=== PATIENT | male | born 1930 | race Caucasian/White ===

== ENCOUNTER 2016-10-07 16:55 | Inpatient (IN) | payer MEDICARE, OTHER ==
[~2016-10-07] VITALS: Ht 172.7 cm; Wt 58.2 kg
[2016-10-07 18:17] LABS: Basophils # (auto) 0 uL; Eosinophils # (auto) 0 uL; Eosinophils % (auto) 0.2 % (0.0-7.0); Hematocrit 32.4 % (41.0-53.0); Hemoglobin 10.5 g/dL (13.5-17.5); Lymphocytes # (auto) 0.9 uL; Lymphocytes % (auto) 6.8 % (10.0-50.0); Mean Corpuscular Hemoglobin 31.4 pg (28.0-32.0); Mean Corpuscular Hgb Conc. 32.5 g/dL (32.0-36.0); Mean Corpuscular Volume 96.5 fL (80.0-100.0); Mean Platelet Volume 7.5 fL (7.4-10.4); Monocytes # (auto) 0.7 uL; Monocytes % (auto) 5.3 % (0.0-12.0); Neutrophils % (auto) 87.7 % (37.0-80.0); Platelet Count (auto) 342 10^3/uL (140-450); Red Cell Distribution Width 14.4 % (11.6-16.0); White Blood Cell 13.7 10^3/uL (4.4-10.8)
[2016-10-07 18:39] LABS: BUN/Creatinine Ratio 23.1; Bilirubin, Total 0.6 mg/dL (0.2-1.0); Calcium 8.6 mg/dL (8.5-10.1); Potassium 3.8 mmol/L (3.5-5.1); Total Protein 7.3 g/dL (6.4-8.2)
[2016-10-07] MEDS ORDERED: ONDANSETRON HCL 4 MG/2 ML VIAL IV ONE (22:45)
[2016-10-07] MEDS ORDERED: MORPHINE SULF INJ 2 MG/ML SYRINGE 1ML IV ONE ×2 (22:45→23:45)
[2016-10-08 00:13] LABS: B-Type Natriuretic Peptide 237.32 pg/mL (0-100)
[2016-10-08 01:15] LABS: Urine RBC None Seen /hpf (0 - 3)
[2016-10-08 01:25] LABS: Urine Bilirubin Negative (Negative); Urine Blood Negative /uL (Negative); Urine Color Yellow (Yellow); Urine Glucose Normal (Normal); Urine Ketone Negative (Negative); Urine Nitrite Negative (Negative); Urine Urobilinogen Normal (Negative); Urine pH 5.5 (5.0-8.0)
[2016-10-08] MEDS ORDERED: VALS1TAB (03:41)
[2016-10-08] MEDS ORDERED: AMLO5TAB2 (03:41)
[2016-10-08] MEDS ORDERED: cefTRIAXone 1GM/50ML D5W 50 ML IV ONE (09:15)
[2016-10-08] MEDS ORDERED: DOCUSATE SOD 100 MG CAP PO PRN (09:30)
[2016-10-08] MEDS ORDERED: ONDANSETRON HCL 4 MG/2 ML VIAL IV PRN (09:30)
[2016-10-08] MEDS ORDERED: cloNIDine HCL 0.1 MG TAB PO PRN (09:30)
[2016-10-08] MEDS ORDERED: TEMAZEPAM 15 MG CAP PO PRN (09:30)
[2016-10-08] MEDS ORDERED: ACETAMINOPHEN 325 MG TAB PO PRN (09:30)
[2016-10-08] MEDS: AZITHROMYCIN 500MG/D5W 250ML 250 ML IV SCH (10:00)
[2016-10-08] MEDS: HCTZ 25 MG TAB PO SCH (10:00)
[2016-10-08] MEDS: MULTIPLE VITAMIN TAB PO SCH (11:13)
[2016-10-08] MEDS: POTASSIUM CHLORIDE 8 MEQ TAB PO SCH (11:13)
[2016-10-08] MEDS: amLODIPine BESYLATE 5 MG TAB PO SCH (11:14)
[2016-10-08] MEDS: VALSARTAN 80 MG TAB PO SCH (11:37)
[2016-10-08] MEDS: BOOST PLUS 8 ounce PO SCH ×2 (12:00→17:57)
[2016-10-08 12:18] VITALS: BP 139/75
[2016-10-08] MEDS: IPRATROPIUM BROM 0.5 MG/2.5ML INH SOL NEB SCH ×2 (13:15→18:56)
[2016-10-08] MEDS: ALBUTEROL SULF 2.5 MG/0.5ML(0.5%) NEB SOLN NEB SCH ×2 (13:15→18:56)
[2016-10-08] MEDS ORDERED: AMLO5TAB2 PO (13:21)
[2016-10-08] MEDS ORDERED: VALS40TA2 PO (13:22)
[2016-10-08] MEDS: SODIUM CHLOR 0.9% PF (SALINE LOCK) 10ML VIAL IV SCH ×2 (14:00→22:27)
[2016-10-08] MEDS: MORPHINE SULF INJ 2 MG/ML SYRINGE 1ML IV PRN (16:16)
[2016-10-08 21:10] VITALS: BP 111/62
[2016-10-09] MEDS: ALBUTEROL SULF 2.5 MG/0.5ML(0.5%) NEB SOLN NEB SCH ×4 (00:29→19:02)
[2016-10-09] MEDS: IPRATROPIUM BROM 0.5 MG/2.5ML INH SOL NEB SCH ×4 (00:29→19:02)
[2016-10-09 05:20] VITALS: BP 118/71
[2016-10-09] MEDS: SODIUM CHLOR 0.9% PF (SALINE LOCK) 10ML VIAL IV SCH ×3 (05:35→22:00)
[2016-10-09 06:15] LABS: Basophils # (auto) 0 uL; Basophils % (auto) 0.2 % (0.0-2.0); Eosinophils # (auto) 0 uL; Eosinophils % (auto) 0.1 % (0.0-7.0); Hematocrit 32.2 % (41.0-53.0); Hemoglobin 10.5 g/dL (13.5-17.5); Lymphocytes # (auto) 1.3 uL; Lymphocytes % (auto) 10.8 % (10.0-50.0); Mean Corpuscular Hemoglobin 31.2 pg (28.0-32.0); Mean Corpuscular Hgb Conc. 32.7 g/dL (32.0-36.0); Mean Corpuscular Volume 95.4 fL (80.0-100.0); Mean Platelet Volume 7.8 fL (7.4-10.4); Monocytes # (auto) 1.1 uL; Monocytes % (auto) 9.1 % (0.0-12.0); Neutrophils # (auto) 9.3 uL; Neutrophils % (auto) 79.8 % (37.0-80.0); Platelet Count (auto) 345 10^3/uL (140-450); Red Cell Distribution Width 13.9 % (11.6-16.0); White Blood Cell 11.6 10^3/uL (4.4-10.8)
[2016-10-09 06:29] LABS: Albumin 2.4 g/dL (3.4-5.0); BUN/Creatinine Ratio 19.3; Calcium 8.2 mg/dL (8.5-10.1); Potassium 3.7 mmol/L (3.5-5.1)
[2016-10-09 06:31] LABS: Bilirubin, Total 0.3 mg/dL (0.2-1.0); Total Protein 6.9 g/dL (6.4-8.2)
[2016-10-09] MEDS: HYDROcodone-ACET 5/325MG TAB PO PRN (08:06)
[2016-10-09] MEDS: BOOST PLUS 8 ounce PO SCH ×3 (08:09→18:36)
[2016-10-09] MEDS: cefTRIAXone 1GM/50ML D5W 50 ML IV SCH (08:29)
[2016-10-09 08:51] VITALS: BP 124/66
[2016-10-09] MEDS: AZITHROMYCIN 500MG/D5W 250ML 250 ML IV SCH (09:36)
[2016-10-09] MEDS: VALSARTAN 80 MG TAB PO SCH (09:36)
[2016-10-09] MEDS: POTASSIUM CHLORIDE 8 MEQ TAB PO SCH (09:37)
[2016-10-09] MEDS: HCTZ 25 MG TAB PO SCH (09:37)
[2016-10-09] MEDS: amLODIPine BESYLATE 5 MG TAB PO SCH (09:38)
[2016-10-09] MEDS: MULTIPLE VITAMIN TAB PO SCH (09:38)
[2016-10-09 12:56] VITALS: BP 105/62
[2016-10-09 17:10] VITALS: BP 136/70
[2016-10-09 22:00] VITALS: BP 117/67
[2016-10-10] MEDS: ALBUTEROL SULF 2.5 MG/0.5ML(0.5%) NEB SOLN NEB SCH ×4 (00:23→19:01)
[2016-10-10] MEDS: IPRATROPIUM BROM 0.5 MG/2.5ML INH SOL NEB SCH ×4 (00:23→19:01)
[2016-10-10 05:00] VITALS: BP 118/69
[2016-10-10 05:43] LABS: Basophils # (auto) 0 uL; Eosinophils # (auto) 0 uL; Hemoglobin 10.6 g/dL (13.5-17.5); Lymphocytes # (auto) 0.9 uL; Lymphocytes % (auto) 7.1 % (10.0-50.0); Mean Corpuscular Hemoglobin 30.6 pg (28.0-32.0); Mean Corpuscular Hgb Conc. 32.2 g/dL (32.0-36.0); Mean Corpuscular Volume 94.9 fL (80.0-100.0); Monocytes # (auto) 1.2 uL; Monocytes % (auto) 9.4 % (0.0-12.0); Neutrophils % (auto) 83.5 % (37.0-80.0); Platelet Count (auto) 328 10^3/uL (140-450); Red Cell Distribution Width 14.1 % (11.6-16.0); White Blood Cell 13.2 10^3/uL (4.4-10.8)
[2016-10-10 06:06] LABS: BUN/Creatinine Ratio 21.3; Calcium 8.2 mg/dL (8.5-10.1)
[2016-10-10] MEDS: SODIUM CHLOR 0.9% PF (SALINE LOCK) 10ML VIAL IV SCH ×3 (06:21→22:00)
[2016-10-10] MEDS: BOOST PLUS 8 ounce PO SCH ×3 (08:00→19:15)
[2016-10-10 09:00] VITALS: BP 120/67
[2016-10-10] MEDS: cefTRIAXone 1GM/50ML D5W 50 ML IV SCH (09:06)
[2016-10-10] MEDS: VALSARTAN 80 MG TAB PO SCH (09:46)
[2016-10-10] MEDS: AZITHROMYCIN 500MG/D5W 250ML 250 ML IV SCH (09:59)
[2016-10-10] MEDS: POTASSIUM CHLORIDE 8 MEQ TAB PO SCH (10:00)
[2016-10-10] MEDS: MULTIPLE VITAMIN TAB PO SCH (10:00)
[2016-10-10] MEDS: amLODIPine BESYLATE 5 MG TAB PO SCH (10:00)
[2016-10-10] MEDS: HCTZ 25 MG TAB PO SCH (10:00)
[2016-10-10 13:00] VITALS: BP 119/61
[2016-10-10 13:24] VITALS: BP 119/61
[2016-10-10] MEDS ORDERED: BISACODYL 5 MG EC TAB PO ONE (13:45)
[2016-10-10] MEDS: HYDROcodone-ACET 5/325MG TAB PO PRN (14:36)
[2016-10-10 17:23] VITALS: BP 111/67
[2016-10-10] MEDS: MORPHINE SULF INJ 2 MG/ML SYRINGE 1ML IV PRN (20:51)
[2016-10-10 22:00] VITALS: BP 117/69
[2016-10-11] MEDS: IPRATROPIUM BROM 0.5 MG/2.5ML INH SOL NEB SCH ×4 (00:39→19:47)
[2016-10-11] MEDS: ALBUTEROL SULF 2.5 MG/0.5ML(0.5%) NEB SOLN NEB SCH ×4 (00:40→19:47)
[2016-10-11] MEDS: SODIUM CHLOR 0.9% PF (SALINE LOCK) 10ML VIAL IV SCH ×3 (06:30→21:50)
[2016-10-11] MEDS: MORPHINE SULF INJ 2 MG/ML SYRINGE 1ML IV PRN ×3 (06:35→12:40)
[2016-10-11] MEDS: BOOST PLUS 8 ounce PO SCH ×3 (08:00→18:00)
[2016-10-11] MEDS: cefTRIAXone 1GM/50ML D5W 50 ML IV SCH (08:30)
[2016-10-11] MEDS: AZITHROMYCIN 500MG/D5W 250ML 250 ML IV SCH (10:02)
[2016-10-11] MEDS: POTASSIUM CHLORIDE 8 MEQ TAB PO SCH (10:05)
[2016-10-11] MEDS: amLODIPine BESYLATE 5 MG TAB PO SCH (10:05)
[2016-10-11] MEDS: MULTIPLE VITAMIN TAB PO SCH (10:06)
[2016-10-11] MEDS: HCTZ 25 MG TAB PO SCH (10:06)
[2016-10-11] MEDS: VALSARTAN 80 MG TAB PO SCH (10:06)
[2016-10-11 10:41] VITALS: BP 107/61
[2016-10-11] MEDS: HYDROcodone-ACET 5/325MG TAB PO PRN (16:09)
[2016-10-11 22:00] VITALS: BP 114/68
[2016-10-12] MEDS: ALBUTEROL SULF 2.5 MG/0.5ML(0.5%) NEB SOLN NEB SCH ×4 (00:50→18:42)
[2016-10-12] MEDS: IPRATROPIUM BROM 0.5 MG/2.5ML INH SOL NEB SCH ×4 (00:50→18:42)
[2016-10-12 02:10] VITALS: BP 104/63
[2016-10-12] MEDS: MORPHINE SULF INJ 2 MG/ML SYRINGE 1ML IV PRN (03:01)
[2016-10-12 03:19] LABS: Basophils # (auto) 0.1 uL; Basophils % (auto) 1.1 % (0.0-2.0); Eosinophils # (auto) 0 uL; Eosinophils % (auto) 0.1 % (0.0-7.0); Hematocrit 32.6 % (41.0-53.0); Hemoglobin 10.6 g/dL (13.5-17.5); Lymphocytes # (auto) 0.7 uL; Lymphocytes % (auto) 5.3 % (10.0-50.0); Mean Corpuscular Hemoglobin 30.8 pg (28.0-32.0); Mean Corpuscular Hgb Conc. 32.5 g/dL (32.0-36.0); Mean Corpuscular Volume 94.9 fL (80.0-100.0); Mean Platelet Volume 7.7 fL (7.4-10.4); Monocytes % (auto) 7.8 % (0.0-12.0); Neutrophils % (auto) 85.7 % (37.0-80.0); Platelet Count (auto) 296 10^3/uL (140-450); Red Cell Distribution Width 13.4 % (11.6-16.0); SUSPECT VIEW TRANSMISSION; White Blood Cell 12.8 10^3/uL (4.4-10.8)
[2016-10-12] MEDS ORDERED: CLOPIDOGREL 300 MG TAB PO ONE (04:15)
[2016-10-12] MEDS ORDERED: HEPARIN DRIP/D5W 100UNITS/ML 250 ML IV SCH (04:21)
[2016-10-12] MEDS ORDERED: HEPARIN DRIP/D5W 100UNITS/ML 250 ML IV ONE (04:26)
[2016-10-12] MEDS ORDERED: CLOPIDOGREL BISULFATE 75 MG TAB ONE (04:29)
[2016-10-12] MEDS ORDERED: HEPARIN SODIUM (PORCINE) 5000 UNITS/ML 1ML VIAL IV ONE (04:30)
[2016-10-12 04:40] LABS: INR 1.11 (0.9-1.15); Partial Thromboplastin Time 34.8 sec (22.64-33.71); Prothrombin Time 11.4 sec (9.37-12.3)
[2016-10-12 05:00] VITALS: BP 104/71
[2016-10-12] MEDS ORDERED: ENOXAPARIN SOD 60 MG/0.6 ML SYRINGE SC SCH (05:00)
[2016-10-12] MEDS: SODIUM CHLOR 0.9% PF (SALINE LOCK) 10ML VIAL IV SCH ×3 (06:22→22:36)
[2016-10-12] MEDS: BOOST PLUS 8 ounce PO SCH ×3 (08:00→18:00)
[2016-10-12 08:30] VITALS: BP 100/57
[2016-10-12] MEDS: HCTZ 25 MG TAB PO SCH (10:00)
[2016-10-12] MEDS: amLODIPine BESYLATE 5 MG TAB PO SCH (10:00)
[2016-10-12] MEDS: VALSARTAN 80 MG TAB PO SCH (10:00)
[2016-10-12] MEDS: POTASSIUM CHLORIDE 8 MEQ TAB PO SCH (10:00)
[2016-10-12] MEDS: MULTIPLE VITAMIN TAB PO SCH (10:00)
[2016-10-12] MEDS ORDERED: IOHEXOL 350 MG/ML 100ML IJ ONE (10:14)
[2016-10-12] MEDS: cefTRIAXone 1GM/50ML D5W 50 ML IV SCH (11:12)
[2016-10-12] MEDS: AZITHROMYCIN 500MG/D5W 250ML 250 ML IV SCH (11:12)
[2016-10-12 11:51] LABS: INR 1.11 (0.9-1.15); Partial Thromboplastin Time 35.8 sec (22.64-33.71); Prothrombin Time 11.4 sec (9.37-12.3)
[2016-10-12 13:00] VITALS: BP 119/69
[2016-10-12] MEDS: HYDROcodone-ACET 5/325MG TAB PO PRN (16:55)
[2016-10-12 17:21] VITALS: BP 125/70
[2016-10-12] MEDS ORDERED: VANCOMYCIN PER PHARMACY 0 MG IV SCH (19:45)
[2016-10-12] MEDS: VANCOMYCIN 1GM/250ML D5W 250 ML IV SCH (21:22)
[2016-10-12 22:00] VITALS: BP 104/57
[2016-10-12] MEDS: APIXABAN 5 MG TAB PO SCH (22:35)
[2016-10-12] MEDS: MEROPENEM 1GM IVPB 100 ML IV SCH (22:36)
[2016-10-13] MEDS: IPRATROPIUM BROM 0.5 MG/2.5ML INH SOL NEB SCH ×4 (00:04→18:45)
[2016-10-13] MEDS: ALBUTEROL SULF 2.5 MG/0.5ML(0.5%) NEB SOLN NEB SCH ×4 (00:05→18:45)
[2016-10-13 05:30] VITALS: BP 107/69
[2016-10-13] MEDS: MEROPENEM 1GM IVPB 100 ML IV SCH ×3 (05:52→21:45)
[2016-10-13] MEDS: SODIUM CHLOR 0.9% PF (SALINE LOCK) 10ML VIAL IV SCH ×3 (06:05→23:27)
[2016-10-13 09:00] VITALS: BP 103/54
[2016-10-13] MEDS: POTASSIUM CHLORIDE 8 MEQ TAB PO SCH (09:37)
[2016-10-13] MEDS: MULTIPLE VITAMIN TAB PO SCH (09:37)
[2016-10-13] MEDS: CLOPIDOGREL BISULFATE 75 MG TAB PO SCH (09:37)
[2016-10-13] MEDS: HYDROcodone-ACET 5/325MG TAB PO PRN (09:38)
[2016-10-13] MEDS: APIXABAN 5 MG TAB PO SCH ×2 (09:38→21:41)
[2016-10-13] MEDS: BOOST PLUS 8 ounce PO SCH ×3 (09:39→18:00)
[2016-10-13] MEDS: amLODIPine BESYLATE 5 MG TAB PO SCH (09:43)
[2016-10-13] MEDS: VALSARTAN 80 MG TAB PO SCH (09:44)
[2016-10-13] MEDS: HCTZ 25 MG TAB PO SCH (09:45)
[2016-10-13 13:00] VITALS: BP 118/67
[2016-10-13] MEDS: predniSONE 20 MG TAB PO SCH (15:01)
[2016-10-13] MEDS: MORPHINE SULF INJ 2 MG/ML SYRINGE 1ML IV PRN (15:14)
[2016-10-13 16:33] VITALS: BP 128/82
[2016-10-13] MEDS: VANCOMYCIN 1GM/250ML D5W 250 ML IV SCH (21:32)
[2016-10-13 22:00] VITALS: BP 110/67
[2016-10-14 05:00] VITALS: BP 101/56
[2016-10-14] MEDS: MEROPENEM 1GM IVPB 100 ML IV SCH ×3 (06:00→21:51)
[2016-10-14] MEDS: SODIUM CHLOR 0.9% PF (SALINE LOCK) 10ML VIAL IV SCH ×3 (06:29→21:53)
[2016-10-14] MEDS: ALBUTEROL SULF 2.5 MG/0.5ML(0.5%) NEB SOLN NEB SCH ×4 (06:39→23:36)
[2016-10-14] MEDS: IPRATROPIUM BROM 0.5 MG/2.5ML INH SOL NEB SCH ×4 (06:39→23:36)
[2016-10-14] MEDS: BOOST PLUS 8 ounce PO SCH ×3 (08:22→17:55)
[2016-10-14 09:00] VITALS: BP 102/66
[2016-10-14] MEDS: predniSONE 20 MG TAB PO SCH (10:06)
[2016-10-14] MEDS: POTASSIUM CHLORIDE 8 MEQ TAB PO SCH (10:07)
[2016-10-14] MEDS: MULTIPLE VITAMIN TAB PO SCH (10:07)
[2016-10-14] MEDS: APIXABAN 5 MG TAB PO SCH ×2 (10:08→21:47)
[2016-10-14] MEDS: HCTZ 25 MG TAB PO SCH (10:09)
[2016-10-14] MEDS: VALSARTAN 80 MG TAB PO SCH (10:09)
[2016-10-14] MEDS: CLOPIDOGREL BISULFATE 75 MG TAB PO SCH (10:09)
[2016-10-14] MEDS: amLODIPine BESYLATE 5 MG TAB PO SCH (10:10)
[2016-10-14 11:12] VITALS: BP 102/66
[2016-10-14 13:00] VITALS: BP 116/69
[2016-10-14 17:00] VITALS: BP 112/72
[2016-10-14 21:00] VITALS: BP 90/47
[2016-10-14] MEDS: VANCOMYCIN 1GM/250ML D5W 250 ML IV SCH (21:50)
[2016-10-14] MEDS ORDERED: MEROPENEM 1GM IVPB 100 ML IV SCH (22:00)
[2016-10-15 05:00] VITALS: BP 122/70
[2016-10-15] MEDS: MEROPENEM 1GM IVPB 100 ML IV SCH ×3 (06:26→23:04)
[2016-10-15] MEDS: SODIUM CHLOR 0.9% PF (SALINE LOCK) 10ML VIAL IV SCH ×3 (06:26→22:06)
[2016-10-15] MEDS: IPRATROPIUM BROM 0.5 MG/2.5ML INH SOL NEB SCH ×3 (06:59→19:20)
[2016-10-15] MEDS: ALBUTEROL SULF 2.5 MG/0.5ML(0.5%) NEB SOLN NEB SCH ×3 (06:59→19:20)
[2016-10-15] MEDS: BOOST PLUS 8 ounce PO SCH ×3 (08:31→18:26)
[2016-10-15 09:00] VITALS: BP 100/57
[2016-10-15] MEDS: predniSONE 20 MG TAB PO SCH (09:50)
[2016-10-15] MEDS: POTASSIUM CHLORIDE 8 MEQ TAB PO SCH (09:51)
[2016-10-15] MEDS: VALSARTAN 80 MG TAB PO SCH (09:51)
[2016-10-15] MEDS: APIXABAN 5 MG TAB PO SCH ×2 (09:51→22:07)
[2016-10-15] MEDS: CLOPIDOGREL BISULFATE 75 MG TAB PO SCH (09:52)
[2016-10-15] MEDS: HCTZ 25 MG TAB PO SCH (09:53)
[2016-10-15] MEDS: MULTIPLE VITAMIN TAB PO SCH (09:53)
[2016-10-15] MEDS: amLODIPine BESYLATE 5 MG TAB PO SCH (09:54)
[2016-10-15 13:00] VITALS: BP 105/67
[2016-10-15 17:00] VITALS: BP 101/60
[2016-10-15 22:00] VITALS: BP 114/63
[2016-10-15] MEDS: VANCOMYCIN 1GM/250ML D5W 250 ML IV SCH (22:00)
[2016-10-16] MEDS: ALBUTEROL SULF 2.5 MG/0.5ML(0.5%) NEB SOLN NEB SCH ×3 (00:57→12:00)
[2016-10-16] MEDS: IPRATROPIUM BROM 0.5 MG/2.5ML INH SOL NEB SCH ×3 (00:57→12:00)
[2016-10-16 05:00] VITALS: BP 142/84
[2016-10-16] MEDS: MEROPENEM 1GM IVPB 100 ML IV SCH ×2 (06:03→13:57)
[2016-10-16] MEDS: SODIUM CHLOR 0.9% PF (SALINE LOCK) 10ML VIAL IV SCH ×2 (06:03→13:58)
[2016-10-16 06:13] LABS: Basophils # (auto) 0 uL; Basophils % (auto) 0.3 % (0.0-2.0); Eosinophils # (auto) 0 uL; Eosinophils % (auto) 0.4 % (0.0-7.0); Hematocrit 31.6 % (41.0-53.0); Hemoglobin 10.2 g/dL (13.5-17.5); Lymphocytes # (auto) 1.4 uL; Lymphocytes % (auto) 13.4 % (10.0-50.0); Mean Corpuscular Hgb Conc. 32.3 g/dL (32.0-36.0); Mean Corpuscular Volume 95.8 fL (80.0-100.0); Mean Platelet Volume 7.8 fL (7.4-10.4); Monocytes # (auto) 0.8 uL; Monocytes % (auto) 7.3 % (0.0-12.0); Neutrophils # (auto) 8.2 uL; Neutrophils % (auto) 78.6 % (37.0-80.0); Platelet Count (auto) 453 10^3/uL (140-450); Red Cell Distribution Width 14.3 % (11.6-16.0); White Blood Cell 10.4 10^3/uL (4.4-10.8)
[2016-10-16] MEDS: BOOST PLUS 8 ounce PO SCH ×2 (07:46→12:34)
[2016-10-16 09:00] VITALS: BP 97/54
[2016-10-16] MEDS: CLOPIDOGREL BISULFATE 75 MG TAB PO SCH (09:40)
[2016-10-16] MEDS: POTASSIUM CHLORIDE 8 MEQ TAB PO SCH (09:40)
[2016-10-16] MEDS: MULTIPLE VITAMIN TAB PO SCH (09:40)
[2016-10-16] MEDS: APIXABAN 5 MG TAB PO SCH (09:40)
[2016-10-16] MEDS: predniSONE 20 MG TAB PO SCH (09:41)
[2016-10-16] MEDS: HCTZ 25 MG TAB PO SCH (09:43)
[2016-10-16] MEDS: amLODIPine BESYLATE 5 MG TAB PO SCH (09:43)
[2016-10-16] MEDS: VALSARTAN 80 MG TAB PO SCH (09:44)
[2016-10-16 13:00] VITALS: BP 120/66
[2016-10-16] MEDS ORDERED: VANCOMYCIN 1GM/250ML D5W 250 ML IV SCH (15:00)
[2016-10-16 15:02] VITALS: BP 120/66
[2016-10-16 15:26] VITALS: BP 120/66
[2016-10-19] MEDS ORDERED: APIXABAN 5 MG TAB PO SCH (22:00)
== END 2016-10-16 16:40 | disposition home or self-care (01) | DRG 871 ==
LOC: ER 16:59 → OVERFLOW 17:00 → WEST WING 10-08 10:24 → TELE-WESTW 10-12 04:30
PROVIDERS: ADMIT Internal Medicine; ATTEND Internal Medicine Pulmonary Disease
DX: A41.9 Sepsis, unspecified organism (principal); J18.9 Pneumonia, unspecified organism; I21.4 Non-ST elevation (NSTEMI) myocardial infarction; I26.99 Other pulmonary embolism without acute cor pulmonale; I50.32 Chronic diastolic (congestive) heart failure; I13.0 Hypertensive heart and chronic kidney disease with heart failure and stage 1 through stage 4 chronic kidney disease, or unspecified chronic kidney disease; J45.901 Unspecified asthma with (acute) exacerbation; E44.0 Moderate protein-calorie malnutrition; J44.0 Chronic obstructive pulmonary disease with (acute) lower respiratory infection; J98.11 Atelectasis; D63.8 Anemia in other chronic diseases classified elsewhere; N20.0 Calculus of kidney; K57.30 Diverticulosis of large intestine without perforation or abscess without bleeding; K59.00 Constipation, unspecified; M16.12 Unilateral primary osteoarthritis, left hip; M17.11 Unilateral primary osteoarthritis, right knee; N18.2 Chronic kidney disease, stage 2 (mild); B95.61 Methicillin susceptible Staphylococcus aureus infection as the cause of diseases classified elsewhere; M17.12 Unilateral primary osteoarthritis, left knee; Z85.828 Personal history of other malignant neoplasm of skin; Z87.891 Personal history of nicotine dependence
CPT/HCPCS: 36415; 36600; 71010; 71275; 73562; 74176; 80048; 80053; 80202; 81001; 82565; 82805; 83605; 83880; 84484; 85025; 85049; 85379; 85610; 85652; 85730; 86141; 87040; 87077; 87081; 87186; 87205; 93005; 93306; 94640; 94660; 96365; 96375; 96376; 97001; 97110; 97116; 97530; J0696; J2185; J2405

== ENCOUNTER 2017-11-17 12:37 | Inpatient (IN) | payer MEDICARE ==
[~2017-11-17] VITALS: Ht 177.8 cm; Wt 64.0 kg
[~2017-11-17 12:37] MED LIST: AMLO5TAB2 PO; VALS40TA2 PO
[2017-11-17 13:25] LABS: Basophils # (auto) 0.1 uL; Basophils % (auto) 0.5 % (0.0-2.0); Eosinophils # (auto) 0 uL; Eosinophils % (auto) 0.2 % (0.0-7.0); Hematocrit 31.6 % (41.0-53.0); Hemoglobin 10.4 g/dL (13.5-17.5); Lymphocytes # (auto) 1.1 uL; Lymphocytes % (auto) 9.8 % (10.0-50.0); Mean Corpuscular Hemoglobin 31.4 pg (28.0-32.0); Mean Corpuscular Hgb Conc. 32.9 g/dL (32.0-36.0); Mean Corpuscular Volume 95.5 fL (80.0-100.0); Monocytes # (auto) 0.9 uL; Monocytes % (auto) 8.4 % (0.0-12.0); Neutrophils # (auto) 9.1 uL; Neutrophils % (auto) 81.1 % (37.0-80.0); Nucleated Red Blood Cells % 0.1 %; Platelet Count (auto) 302 10^3/uL (140-450); Red Blood Cells 3.31 10^6/uL (4.5-5.90); Red Cell Distribution Width 15.1 % (11.8-14.3); White Blood Cell 11.2 10^3/uL (4.4-10.8)
[2017-11-17 13:34] LABS: INR 1.03 (0.9-1.15); Partial Thromboplastin Time 34.9 sec (22.64-33.71); Prothrombin Time 11.2 sec (9.37-12.3)
[2017-11-17 13:39] LABS: Albumin 2.6 g/dL (3.4-5.0); BUN/Creatinine Ratio 26.3; Calcium 8.7 mg/dL (8.5-10.1); Potassium 4.5 mmol/L (3.5-5.1)
[2017-11-17 13:45] LABS: Bilirubin, Total 0.4 mg/dL (0.2-1.0); Total Protein 7.2 g/dL (6.4-8.2)
[2017-11-17] MEDS ORDERED: AZITHROMYCIN 500MG/ 250ML 250 ML IV ONE (14:45)
[2017-11-17] MEDS ORDERED: cefTRIAXone 1GM/10ml IVPUSH 10 ML IV ONE (14:45)
[2017-11-17] MEDS ORDERED: LORazepam 0.5 MG TAB PO PRN (15:15)
[2017-11-17] MEDS ORDERED: TEMAZEPAM 15 MG CAP PO PRN (15:15)
[2017-11-17] MEDS ORDERED: MORPHINE SULFATE 4 MG/ML SYR/VIAL IV PRN (15:15)
[2017-11-17] MEDS ORDERED: ALBUTEROL SULF 2.5 MG/0.5ML(0.5%) NEB SOLN NEB PRN (15:15)
[2017-11-17] MEDS ORDERED: ACETAMINOPHEN 500 MG TAB PO PRN (15:15)
[2017-11-17] MEDS ORDERED: OSELTAMIVIR 75 MG CAP PO ONE (15:15)
[2017-11-17] MEDS ORDERED: PROMETHAZINE HCL 25 MG/ML 1ML IV PRN (15:15)
[2017-11-17] MEDS ORDERED: NITROGLYCERIN 0.4 MG SL TAB SL PRN (15:15)
[2017-11-17] MEDS: SODIUM CHLORIDE 0.9% 1,000 ML IV SCH (15:26)
[2017-11-17 15:38] VITALS: BP 144/79
[2017-11-17 16:26] VITALS: BP 111/74
[2017-11-17] MEDS: ENOXAPARIN SOD 40 MG/0.4 ML SYRINGE SC SCH ×2 (16:48→22:30)
[2017-11-17 17:00] VITALS: BP 111/74
[2017-11-17] MEDS: IPRATROPIUM BROM 0.5 MG/2.5ML INH SOL NEB SCH (18:45)
[2017-11-17] MEDS: ALBUTEROL SULF 2.5 MG/0.5ML(0.5%) NEB SOLN NEB SCH (18:45)
[2017-11-17] MEDS ORDERED: amLODIPine BESYLATE 5 MG TAB PO SCH (22:00)
[2017-11-17] MEDS ORDERED: OSELTAMIVIR 75 MG CAP PO SCH (22:00)
[2017-11-17 22:19] VITALS: BP 106/65
[2017-11-17] MEDS: CARVEDILOL 3.125 MG TAB PO SCH (22:29)
[2017-11-18] MEDS: ALBUTEROL SULF 2.5 MG/0.5ML(0.5%) NEB SOLN NEB SCH ×4 (01:49→19:21)
[2017-11-18] MEDS: IPRATROPIUM BROM 0.5 MG/2.5ML INH SOL NEB SCH ×4 (01:49→19:21)
[2017-11-18 05:07] VITALS: BP 94/75
[2017-11-18] MEDS: SODIUM CHLORIDE 0.9% 1,000 ML IV SCH (05:53)
[2017-11-18 05:54] LABS: Basophils # (auto) 0 uL; Basophils % (auto) 0.4 % (0.0-2.0); Eosinophils # (auto) 0 uL; Eosinophils % (auto) 0.5 % (0.0-7.0); Hematocrit 28.2 % (41.0-53.0); Hemoglobin 9.6 g/dL (13.5-17.5); Lymphocytes # (auto) 0.9 uL; Lymphocytes % (auto) 11.6 % (10.0-50.0); Mean Corpuscular Hemoglobin 32.3 pg (28.0-32.0); Mean Corpuscular Volume 94.8 fL (80.0-100.0); Monocytes # (auto) 0.7 uL; Monocytes % (auto) 8.8 % (0.0-12.0); Neutrophils # (auto) 6.1 uL; Neutrophils % (auto) 78.7 % (37.0-80.0); Platelet Count (auto) 318 10^3/uL (140-450); Red Blood Cells 2.97 10^6/uL (4.5-5.90); Red Cell Distribution Width 14.8 % (11.8-14.3); White Blood Cell 7.8 10^3/uL (4.4-10.8)
[2017-11-18 06:30] LABS: Albumin 2.2 g/dL (3.4-5.0); BUN/Creatinine Ratio 23.9; Bilirubin, Total 0.3 mg/dL (0.2-1.0); Calcium 8.3 mg/dL (8.5-10.1); Potassium 4.5 mmol/L (3.5-5.1); Total Protein 6.6 g/dL (6.4-8.2)
[2017-11-18 08:00] VITALS: BP 99/67
[2017-11-18] MEDS ORDERED: KETOROLAC TROMETH 30 MG/ML 1ML VIAL IV ONE (09:45)
[2017-11-18] MEDS ORDERED: FUROSEMIDE 20 MG/2 ML VIAL IV ONE (09:45)
[2017-11-18] MEDS ORDERED: POTASSIUM CHL 10% (20 MEQ/15ML) 15ml ORAL SOLN PO ONE (09:45)
[2017-11-18] MEDS: CARVEDILOL 3.125 MG TAB PO SCH ×2 (10:00→21:42)
[2017-11-18] MEDS ORDERED: PATIENTS OWN MEDICATION (Valsartan (Diovan) 80 MG) PO SCH (10:00)
[2017-11-18] MEDS ORDERED: VALSARTAN 80 MG TAB PO SCH (10:00)
[2017-11-18] MEDS: ENALAPRIL MALEATE 2.5 MG TAB PO SCH (10:00)
[2017-11-18] MEDS ORDERED: ENALAPRIL MALEATE 2.5 MG TAB PO SCH (10:00)
[2017-11-18] MEDS: cefTRIAXone 1GM/10ml IVPUSH 10 ML IV SCH (10:44)
[2017-11-18] MEDS: PANTOPRAZOLE 40 MG TAB PO SCH (10:45)
[2017-11-18] MEDS: ENOXAPARIN SOD 40 MG/0.4 ML SYRINGE SC SCH (10:45)
[2017-11-18] MEDS: ASPirin 81 mg TAB PO SCH (10:45)
[2017-11-18 11:43] LABS: Urine Bacteria NONE SEEN /hpf (None Seen); Urine Blood Negative /uL (Negative); Urine Specific Gravity 1.019 (1.001-1.035); Urine WBC <1 /hpf (0 - 3)
[2017-11-18 12:00] VITALS: BP 87/55
[2017-11-18] MEDS: AZITHROMYCIN 500MG/ 250ML 250 ML IV SCH (13:57)
[2017-11-18] MEDS: HYDROcodone-ACET 5/325MG TAB PO PRN (15:05)
[2017-11-18 16:00] VITALS: BP 89/55
[2017-11-18 21:51] VITALS: BP 91/57
[2017-11-19] MEDS: ALBUTEROL SULF 2.5 MG/0.5ML(0.5%) NEB SOLN NEB SCH ×4 (00:36→19:10)
[2017-11-19] MEDS: IPRATROPIUM BROM 0.5 MG/2.5ML INH SOL NEB SCH ×4 (00:36→19:10)
[2017-11-19] MEDS: MORPHINE SULFATE 4 MG/ML SYR/VIAL IV PRN (04:24)
[2017-11-19 04:38] VITALS: BP 107/55
[2017-11-19 07:06] LABS: Basophils # (auto) 0.1 uL; Basophils % (auto) 0.6 % (0.0-2.0); Eosinophils # (auto) 0.1 uL; Eosinophils % (auto) 1.2 % (0.0-7.0); Hematocrit 30.4 % (41.0-53.0); Hemoglobin 10.1 g/dL (13.5-17.5); Lymphocytes # (auto) 0.9 uL; Lymphocytes % (auto) 10.1 % (10.0-50.0); Mean Corpuscular Hemoglobin 31.4 pg (28.0-32.0); Mean Corpuscular Hgb Conc. 33.3 g/dL (32.0-36.0); Mean Corpuscular Volume 94.4 fL (80.0-100.0); Monocytes # (auto) 0.6 uL; Monocytes % (auto) 7.1 % (0.0-12.0); Neutrophils # (auto) 6.9 uL; Nucleated Red Blood Cells % 0.1 %; Platelet Count (auto) 345 10^3/uL (140-450); Red Blood Cells 3.22 10^6/uL (4.5-5.90); Red Cell Distribution Width 15.4 % (11.8-14.3); White Blood Cell 8.5 10^3/uL (4.4-10.8)
[2017-11-19 07:26] LABS: Magnesium 2.4 mg/dL (1.6-2.6); Potassium 5.3 mmol/L (3.5-5.1)
[2017-11-19 07:34] VITALS: BP 110/56
[2017-11-19 08:00] VITALS: BP 118/60
[2017-11-19] MEDS: PANTOPRAZOLE 40 MG TAB PO SCH (09:48)
[2017-11-19] MEDS: ASPirin 81 mg TAB PO SCH (09:48)
[2017-11-19] MEDS: ENOXAPARIN SOD 40 MG/0.4 ML SYRINGE SC SCH (09:49)
[2017-11-19] MEDS: FUROSEMIDE 20 MG TAB PO SCH (09:49)
[2017-11-19] MEDS: AZITHROMYCIN 500MG/ 250ML 250 ML IV SCH (09:52)
[2017-11-19] MEDS: cefTRIAXone 1GM/10ml IVPUSH 10 ML IV SCH (09:52)
[2017-11-19] MEDS: CARVEDILOL 3.125 MG TAB PO SCH ×2 (09:53→21:27)
[2017-11-19] MEDS: ENALAPRIL MALEATE 2.5 MG TAB PO SCH (09:54)
[2017-11-19] MEDS ORDERED: POTASSIUM CHL 10% (20 MEQ/15ML) 15ml ORAL SOLN PO SCH (10:00)
[2017-11-19 11:53] VITALS: BP 118/60
[2017-11-19] MEDS ORDERED: SODIUM POLYSTYRENE SULF 15GM/60ML SUSP PO ONE (12:00)
[2017-11-19] MEDS: HYDROcodone-ACET 5/325MG TAB PO PRN (12:43)
[2017-11-19 17:23] VITALS: BP 100/56
[2017-11-19 18:14] LABS: BUN/Creatinine Ratio 19.8; Potassium 5.2 mmol/L (3.5-5.1)
[2017-11-19 22:05] VITALS: BP 113/53
[2017-11-20] VITALS (7 sets, daily range): BP systolic 89–133; BP diastolic 52–87
[2017-11-20] MEDS: IPRATROPIUM BROM 0.5 MG/2.5ML INH SOL NEB SCH ×4 (00:24→18:45)
[2017-11-20] MEDS: ALBUTEROL SULF 2.5 MG/0.5ML(0.5%) NEB SOLN NEB SCH ×4 (00:24→18:45)
[2017-11-20] MEDS: MORPHINE SULFATE 4 MG/ML SYR/VIAL IV PRN ×2 (00:45→13:53)
[2017-11-20] MEDS: HYDROcodone-ACET 5/325MG TAB PO PRN ×2 (04:51→09:53)
[2017-11-20] MEDS: LACTULOSE 20Gm/30ML SOLN PO PRN (05:16)
[2017-11-20 07:15] LABS: Albumin 2.1 g/dL (3.4-5.0); BUN/Creatinine Ratio 18.3; Bilirubin, Total 0.3 mg/dL (0.2-1.0); Calcium 7.8 mg/dL (8.5-10.1); Potassium 4.7 mmol/L (3.5-5.1); Total Protein 7.2 g/dL (6.4-8.2)
[2017-11-20] MEDS: cefTRIAXone 1GM/10ml IVPUSH 10 ML IV SCH (09:20)
[2017-11-20] MEDS: PANTOPRAZOLE 40 MG TAB PO SCH (09:53)
[2017-11-20] MEDS: FUROSEMIDE 20 MG TAB PO SCH (09:54)
[2017-11-20] MEDS: ASPirin 81 mg TAB PO SCH (09:54)
[2017-11-20] MEDS: ENOXAPARIN SOD 40 MG/0.4 ML SYRINGE SC SCH (09:55)
[2017-11-20] MEDS: CARVEDILOL 3.125 MG TAB PO SCH (09:55)
[2017-11-20] MEDS: AZITHROMYCIN 500MG/ 250ML 250 ML IV SCH (09:55)
[2017-11-20] MEDS ORDERED: methylPREDNISolone SOD SUCC 125 MG/2 ML VL IV ONE (13:00)
[2017-11-21 04:59] VITALS: BP 108/58
[2017-11-21] MEDS: ALBUTEROL SULF 2.5 MG/0.5ML(0.5%) NEB SOLN NEB SCH ×2 (06:34)
[2017-11-21] MEDS: IPRATROPIUM BROM 0.5 MG/2.5ML INH SOL NEB SCH ×4 (06:34→19:54)
[2017-11-21 08:00] VITALS: BP 110/76
[2017-11-21 08:32] VITALS: BP 110/76
[2017-11-21] MEDS ORDERED: methylPREDNISolone SOD SUCC 125 MG/2 ML VL IV SCH (10:00)
[2017-11-21] MEDS ORDERED: CARVEDILOL 3.125 MG TAB PO SCH (10:00)
[2017-11-21] MEDS: cefTRIAXone 1GM/10ml IVPUSH 10 ML IV SCH (10:06)
[2017-11-21] MEDS: ENOXAPARIN SOD 40 MG/0.4 ML SYRINGE SC SCH (10:07)
[2017-11-21] MEDS: ASPirin 81 mg TAB PO SCH (10:07)
[2017-11-21] MEDS: AZITHROMYCIN 500MG/ 250ML 250 ML IV SCH (10:07)
[2017-11-21] MEDS: PANTOPRAZOLE 40 MG TAB PO SCH (10:09)
[2017-11-21] MEDS: CARVEDILOL 3.125 MG TAB PO SCH ×2 (10:09→22:00)
[2017-11-21] MEDS: LACTULOSE 20Gm/30ML SOLN PO PRN (10:10)
[2017-11-21] MEDS ORDERED: LACTULOSE 20Gm/30ML SOLN PO ONE (11:30)
[2017-11-21 12:28] VITALS: BP 99/70
[2017-11-21] MEDS: FUROSEMIDE 100 MG/10ML VIAL IV SCH ×2 (13:52→18:00)
[2017-11-21] MEDS: AMIODARONE HCL 200 MG TAB PO SCH ×3 (13:54→22:32)
[2017-11-21 17:06] VITALS: BP 96/65
[2017-11-21 22:14] VITALS: BP 85/63
[2017-11-21] MEDS: HYDROcodone-ACET 5/325MG TAB PO PRN (22:33)
[2017-11-22] MEDS: IPRATROPIUM BROM 0.5 MG/2.5ML INH SOL NEB SCH ×4 (00:35→18:00)
[2017-11-22] MEDS: FUROSEMIDE 100 MG/10ML VIAL IV SCH (05:43)
[2017-11-22 05:44] VITALS: BP 83/56
[2017-11-22] MEDS: AMIODARONE HCL 200 MG TAB PO SCH ×3 (06:06→22:18)
[2017-11-22 06:59] LABS: Basophils # (auto) 0.1 uL; Basophils % (auto) 0.8 % (0.0-2.0); Eosinophils # (auto) 0 uL; Eosinophils % (auto) 0.1 % (0.0-7.0); Hematocrit 27.5 % (41.0-53.0); Hemoglobin 9.5 g/dL (13.5-17.5); Lymphocytes # (auto) 0.8 uL; Lymphocytes % (auto) 6.1 % (10.0-50.0); Mean Corpuscular Hgb Conc. 34.5 g/dL (32.0-36.0); Mean Corpuscular Volume 92.8 fL (80.0-100.0); Monocytes # (auto) 0.5 uL; Monocytes % (auto) 3.6 % (0.0-12.0); Neutrophils # (auto) 11.4 uL; Neutrophils % (auto) 89.4 % (37.0-80.0); Platelet Count (auto) 357 10^3/uL (140-450); Red Blood Cells 2.96 10^6/uL (4.5-5.90); Red Cell Distribution Width 14.7 % (11.8-14.3); White Blood Cell 12.7 10^3/uL (4.4-10.8)
[2017-11-22 07:11] LABS: Calcium 7.9 mg/dL (8.5-10.1); Potassium 4.2 mmol/L (3.5-5.1)
[2017-11-22 07:18] LABS: BUN/Creatinine Ratio 34.8
[2017-11-22] MEDS: ASPirin 81 mg TAB PO SCH (08:51)
[2017-11-22] MEDS: cefTRIAXone 1GM/10ml IVPUSH 10 ML IV SCH (08:51)
[2017-11-22] MEDS: PANTOPRAZOLE 40 MG TAB PO SCH (08:51)
[2017-11-22] MEDS: CARVEDILOL 3.125 MG TAB PO SCH ×2 (08:51→22:00)
[2017-11-22] MEDS: AZITHROMYCIN 500MG/ 250ML 250 ML IV SCH (08:51)
[2017-11-22] MEDS: BOOST PLUS 8 ounce PO SCH ×3 (08:52→18:00)
[2017-11-22 09:00] VITALS: BP 111/63
[2017-11-22] MEDS: ENOXAPARIN SOD 40 MG/0.4 ML SYRINGE SC SCH (10:00)
[2017-11-22 12:22] VITALS: BP 69/32
[2017-11-22 14:00] VITALS: BP 135/73
[2017-11-22] MEDS: APIXABAN 2.5 MG TAB PO SCH ×2 (14:00→22:19)
[2017-11-22 16:13] VITALS: BP 99/66
[2017-11-22 22:00] VITALS: BP 94/57
[2017-11-23] VITALS (7 sets, daily range): BP systolic 98–112; BP diastolic 55–68
[2017-11-23] MEDS: IPRATROPIUM BROM 0.5 MG/2.5ML INH SOL NEB SCH ×4 (00:54→19:36)
[2017-11-23] MEDS: AMIODARONE HCL 200 MG TAB PO SCH ×4 (05:56→21:54)
[2017-11-23] MEDS: BOOST PLUS 8 ounce PO SCH ×3 (07:34→17:44)
[2017-11-23 08:16] LABS: Basophils # (auto) 0 uL; Basophils % (auto) 0.3 % (0.0-2.0); Eosinophils # (auto) 0 uL; Eosinophils % (auto) 0.4 % (0.0-7.0); Hematocrit 28.9 % (41.0-53.0); Hemoglobin 9.7 g/dL (13.5-17.5); Lymphocytes # (auto) 0.7 uL; Lymphocytes % (auto) 6.1 % (10.0-50.0); Mean Corpuscular Hemoglobin 30.9 pg (28.0-32.0); Mean Corpuscular Hgb Conc. 33.4 g/dL (32.0-36.0); Mean Corpuscular Volume 92.5 fL (80.0-100.0); Monocytes # (auto) 0.5 uL; Monocytes % (auto) 4.5 % (0.0-12.0); Neutrophils # (auto) 10.3 uL; Neutrophils % (auto) 88.7 % (37.0-80.0); Platelet Count (auto) 393 10^3/uL (140-450); Red Blood Cells 3.13 10^6/uL (4.5-5.90); Red Cell Distribution Width 14.7 % (11.8-14.3); White Blood Cell 11.5 10^3/uL (4.4-10.8)
[2017-11-23] MEDS: cefTRIAXone 1GM/10ml IVPUSH 10 ML IV SCH (08:20)
[2017-11-23 08:51] LABS: BUN/Creatinine Ratio 36.4; Calcium 8.2 mg/dL (8.5-10.1); Potassium 4.1 mmol/L (3.5-5.1)
[2017-11-23] MEDS: PANTOPRAZOLE 40 MG TAB PO SCH (09:11)
[2017-11-23] MEDS: LACTULOSE 20Gm/30ML SOLN PO PRN (09:11)
[2017-11-23] MEDS: APIXABAN 2.5 MG TAB PO SCH ×2 (09:11→21:24)
[2017-11-23] MEDS: CARVEDILOL 3.125 MG TAB PO SCH ×2 (09:12→21:54)
[2017-11-23] MEDS: AZITHROMYCIN 500MG/ 250ML 250 ML IV SCH (09:12)
[2017-11-23] MEDS: ASPirin 81 mg TAB PO SCH (09:12)
[2017-11-24 05:00] VITALS: BP 100/55
[2017-11-24] MEDS: AMIODARONE HCL 200 MG TAB PO SCH ×2 (05:49→13:21)
[2017-11-24] MEDS: IPRATROPIUM BROM 0.5 MG/2.5ML INH SOL NEB SCH ×3 (07:05→13:00)
[2017-11-24] MEDS: BOOST PLUS 8 ounce PO SCH ×2 (07:18→13:21)
[2017-11-24 07:19] LABS: Basophils # (auto) 0 uL; Basophils % (auto) 0.2 % (0.0-2.0); Eosinophils # (auto) 0.1 uL; Eosinophils % (auto) 0.9 % (0.0-7.0); Hematocrit 28.6 % (41.0-53.0); Hemoglobin 9.7 g/dL (13.5-17.5); Lymphocytes # (auto) 0.7 uL; Lymphocytes % (auto) 7.5 % (10.0-50.0); Mean Corpuscular Hemoglobin 31.4 pg (28.0-32.0); Mean Corpuscular Hgb Conc. 33.8 g/dL (32.0-36.0); Mean Corpuscular Volume 92.7 fL (80.0-100.0); Monocytes # (auto) 0.5 uL; Monocytes % (auto) 5.6 % (0.0-12.0); Neutrophils # (auto) 8.2 uL; Neutrophils % (auto) 85.8 % (37.0-80.0); Platelet Count (auto) 416 10^3/uL (140-450); Red Blood Cells 3.09 10^6/uL (4.5-5.90); Red Cell Distribution Width 14.9 % (11.8-14.3); White Blood Cell 9.6 10^3/uL (4.4-10.8)
[2017-11-24 07:57] LABS: Albumin 1.9 g/dL (3.4-5.0); BUN/Creatinine Ratio 30.5; Bilirubin, Total 0.3 mg/dL (0.2-1.0); Calcium 7.7 mg/dL (8.5-10.1); Potassium 3.9 mmol/L (3.5-5.1); Total Protein 6.4 g/dL (6.4-8.2)
[2017-11-24 08:21] VITALS: BP 105/51
[2017-11-24] MEDS ORDERED: AZITHROMYCIN 250 MG TAB PO SCH (10:00)
[2017-11-24] MEDS: cefTRIAXone 1GM/10ml IVPUSH 10 ML IV SCH (10:01)
[2017-11-24] MEDS: ASPirin 81 mg TAB PO SCH (10:03)
[2017-11-24 10:04] VITALS: BP 105/51
[2017-11-24] MEDS: CARVEDILOL 3.125 MG TAB PO SCH (10:04)
[2017-11-24] MEDS: APIXABAN 2.5 MG TAB PO SCH (10:05)
[2017-11-24] MEDS: PANTOPRAZOLE 40 MG TAB PO SCH (10:14)
[2017-11-24 11:56] VITALS: BP 109/56
[2017-11-24 16:43] VITALS: BP 126/75
[2017-11-24] MEDS: MORPHINE SULFATE 4 MG/ML SYR/VIAL IV PRN (16:48)
== END 2017-11-24 17:10 | disposition home health service (06) | DRG 291 ==
LOC: EDBD 12:37 → ER 12:37 → EDUNIT# 12:37 → TELE 12:38 → TELE-EAST 16:05
PROVIDERS: ADMIT Internal Medicine; ATTEND Family Medicine
PROC: 0W993ZZ Drainage of Right Pleural Cavity, Percutaneous Approach (ICD-10-PCS; principal; 2017-11-21)
DX: I11.0 Hypertensive heart disease with heart failure (principal); J18.1 Lobar pneumonia, unspecified organism; J90 Pleural effusion, not elsewhere classified; J44.0 Chronic obstructive pulmonary disease with (acute) lower respiratory infection; E87.1 Hypo-osmolality and hyponatremia; I48.91 Unspecified atrial fibrillation; M48.54XA Collapsed vertebra, not elsewhere classified, thoracic region, initial encounter for fracture; J44.1 Chronic obstructive pulmonary disease with (acute) exacerbation; M48.56XA Collapsed vertebra, not elsewhere classified, lumbar region, initial encounter for fracture; F41.9 Anxiety disorder, unspecified; M25.551 Pain in right hip; G89.29 Other chronic pain; K59.00 Constipation, unspecified; M19.90 Unspecified osteoarthritis, unspecified site; M81.0 Age-related osteoporosis without current pathological fracture; G47.00 Insomnia, unspecified; I50.43 Acute on chronic combined systolic (congestive) and diastolic (congestive) heart failure; E87.6 Hypokalemia; Z79.01 Long term (current) use of anticoagulants; Z85.828 Personal history of other malignant neoplasm of skin; Z87.891 Personal history of nicotine dependence; Z79.899 Other long term (current) drug therapy; Z80.8 Family history of malignant neoplasm of other organs or systems
CPT/HCPCS: 10022; 32555; 36415; 36600; 71045; 73502; 74176; 76604; 76942; 80048; 80053; 80061; 81001; 82550; 82805; 83605; 83735; 83880; 84443; 84484; 85025; 85610; 85730; 87040; 87804; 93005; 93306; 94640; 94761; 96365; 96375; 97163; J1885